=== PATIENT | male | born 1950 | race Caucasian/White ===

== ENCOUNTER 2021-09-10 02:48 | Emergency (ER) | payer OTHER ==
[~2021-09-10] VITALS: Ht 170.2 cm; Wt 63.5 kg
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
[2021-09-10] MEDS ORDERED: DEXTROSE 50%-WATER 50 ML DISP.SYRIN ONE (03:29)
[2021-09-10] MEDS ORDERED: TDAP [DIPH/PERTUSSIS/TET] 0.5 ML VIAL IM ONE ×2 (03:29→03:30)
[2021-09-10] MEDS ORDERED: DEXTROSE 50%-WATER 50 ML DISP.SYRIN IVP ONE (03:30)
[2021-09-10 03:55] LABS: ALANINE AMINOTRANSFERASE 108 U/L (12-78); ALBUMIN 1.9 g/dL (3.4-5.0); ASPARTATE AMINOTRANSFERASE 149 U/L (15-37); BILIRUBIN,DIRECT 17.2 mg/dL (0.0-0.2); CALCIUM, SERUM 11.9 mg/dL (8.5-10.1); CARBON DIOXIDE 28 mmol/L (21-32); CHLORIDE 104 mmol/L (98-107); CREATININE 1.7 mg/dL (0.6-1.3); GLUCOSE 76 mg/dL (74-106); LIPASE 38 U/L (73-393); POTASSIUM 3.3 mmol/L (3.5-5.1); SODIUM SERUM 140 mmol/L (136-145); TOTAL PROTEIN, SERUM 5.7 g/dL (6.4-8.2); UREA NITROGEN, BLOOD 26 mg/dL (7-18)
--- NOTE | 2021-09-10 04:06 | NUR ---
PT TAKEN TO AND RETURNED FROM [place]
[2021-09-10 04:07] LABS: BASOPHILS # (AUTO) 0.2 K/uL (0.0-0.2); BASOPHILS % (AUTO) 0.8 % (0.0-2.0); EOSINOPHILS % (AUTO) 0.3 % (0.0-6.0); HEMATOCRIT 38 % (39-51); HEMOGLOBIN 12.2 g/dL (13.5-17.5); LYMPHOCYTES % (AUTO) 5.2 % (20.0-44.0); MEAN CORPUSCULAR HGB CONC 32 g/dl (31.0-36.0); MEAN CORPUSCULAR VOLUME 100 fL (80-96); MONOCYTES # (AUTO) 0.8 K/uL (0.1-1.30); MONOCYTES % (AUTO) 3.8 % (2.0-12.0); NEUTROPHILS # (AUTO) 17.7 K/uL (1.8-8.9); NEUTROPHILS % (AUTO) 89.9 % (43.0-81.0); PLATELET COUNT (AUTO) 315 K/uL (150-450); RED BLOOD CELL COUNT(AUTO) 3.79 MIL/uL (4.5-6.0); WHITE BLOOD COUNT (AUTO) 19.7 K/uL (4.3-11.0)
[2021-09-10 04:20] LABS: SERUM AMMONIA 5 umol/L (11-32)
[2021-09-10 04:25] LABS: BILIRUBIN,TOTAL 19.6 mg/dL (0.2-1.0)
[2021-09-10 04:40] LABS: BILIRUBIN,URINE LARGE (NEGATIVE); COLOR,URINE ORANGE (YELLOW); LEUKOCYTE ESTERASE ,URINE TRACE (NEGATIVE); NITRITE, URINE NEGATIVE (NEGATIVE); PH,URINE 6.5 (5.0-8.0); PROTEIN,URINE NEGATIVE (NEGATIVE); UGLUCOSE NEGATIVE (NEGATIVE)
[2021-09-10 04:51] LABS: ALKALINE PHOSPHATASE 2897 U/L (46-116)
[2021-09-10 04:55] LABS: BACTERIA,URINE Moderate /HPF (None Seen); RBC,URINE 0-2 /HPF (0-2); SQUAMOUS EPITHELIAL CELL,UR Moderate /HPF (None Seen)
[2021-09-10 04:56] LABS: MUCUS,URINE Moderate /LPF (None Seen)
[2021-09-10 04:59] LABS: LYMPHOCYTES % (MANUAL) 4 % (16-48); MONOCYTES % (MANUAL) 1 % (0-11.0); NEUTROPHILS % (MANUAL) 95 (42-76)
--- NOTE | 2021-09-10 05:01 | NUR ---
CALLED [facility] FOR PANEL CALL
--- NOTE | 2021-09-10 05:40 | NUR ---
PT PROVIDED WITH A SANDWHICH AND JUICE.
--- NOTE | 2021-09-10 05:46 | NUR ---
JANKI FROM [place] WILL CALL BACK WITH [facility] FOR TRANSPORTATION.
--- NOTE | 2021-09-10 06:07 | NUR ---
RECEIVED A CALL FROM JAKNI FROM [facility]. PT TRANSPORT WILL BE PICKING UP PT AT 0700
--- NOTE | 2021-09-10 07:01 | NUR ---
IV removed. Catheter intact and site benign. Pressure and 4x4 applied to site. No bleeding noted.
--- NOTE | 2021-09-10 07:02 | NUR ---
PT IS CLEARED FOR DISCHARGE BACK TO HIS HOME. PT IS IN STABLE CONDITION FOR TRANSPORT. ACI GIVEN TO PATIENT. ALL LAB AND IMAGING RESULT GIVEN TO PATIENT WELL A CD OF HIS IMAGING [facility] TAM MD REQUEST. PT WAS ALSO INSTRUCTED TO BRING THOSE RESULT AND CD ON HIS NEXT APPOINTMENT. PT VERBALIZED UNDERSTANDING THE INSTRUCTIONS
--- NOTE | 2021-09-10 07:03 | NUR ---
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
[2021-09-10 07:06] VITALS: BP 101/62
--- NOTE | 2021-09-11 04:59 | NUR ---
RECIEVED BLOOD CULTURE RESULT FOR POSITIVE GRAM NEGATIVE BACTERIA. CALLED [facility] TO PROVIDE RESULTS AND [facility] WOULD NOT ACCEPT IT DUE TO PATIENT NO LONGER BEING IN THE EMERGENCY DEPARTMENT.
== END 2021-09-10 07:06 | disposition home or self-care (01) ==
LOC: ER 02:52
DX: K75.9 Inflammatory liver disease, unspecified (principal); M62.9 Disorder of muscle, unspecified; N17.9 Acute kidney failure, unspecified; Z85.05 Personal history of malignant neoplasm of liver; N13.30 Unspecified hydronephrosis; E16.2 Hypoglycemia, unspecified; Z93.3 Colostomy status; Z85.048 Personal history of other malignant neoplasm of rectum, rectosigmoid junction, and anus; Z20.822 Contact with and (suspected) exposure to COVID-19; R00.0 Tachycardia, unspecified; R03.0 Elevated blood-pressure reading, without diagnosis of hypertension
CPT/HCPCS: 36415; 70450; 71045; 72131; 73502; 80048; 80076; 81001; 82140; 82962 ×2; 83605; 83690; 83880; 84484; 85007; 85025; 85730; 87040 ×2; 87077; 87086; 87186; 87426; 90471; 90715; 93005; 96374; 99285; C9803